=== PATIENT | male | born 1995 | race Caucasian/White ===

== ENCOUNTER → 2021-10-13 | Outpatient (CLI) | payer OTHER ==
--- NOTE | 2021-10-13 09:34 | RAD ---
EXAM: Chest, 2 views. HISTORY: Chest pain. Shortness of air. COMPARISON: None. FINDINGS: 2 views of the chest are obtained. There is no infiltrate, pleural effusion or pneumothorax . The heart is normal in size. There is hyperinflation likely due to inspiratory effort. IMPRESSION: No acute pulmonary finding. Electronically signed by: Melony Mehta MD (10/13/2021 9:32 AM) [id number]
== END ==
LOC: RAD 09:02
PROVIDERS: ATTEND Physician Assistant
DX: J98.11 Atelectasis (principal); R06.02 Shortness of breath; R07.9 Chest pain, unspecified
CPT/HCPCS: 71046